=== PATIENT | female | born 1980 | race Native Hawaiian/Other Pacific Islander ===

== ENCOUNTER 2016-08-09 13:22 | Emergency (ER) | payer OTHER ==
[~2016-08-09] VITALS: Ht 170.2 cm; Wt 69.9 kg
[2016-08-09 15:11] LABS: PLATELET COUNT 193 K/uL (152-353)
[2016-08-09 15:30] LABS: POTASSIUM 3.1 mmol/L (3.6-5.2); SODIUM 137 mmol/L (136-145)
[2016-08-09 16:03] VITALS: BP 120/83; TEMP 98.5
== END 2016-08-09 16:18 | disposition home or self-care (01) ==
LOC: ED 13:22
DX: R00.2 Palpitations (principal)
CPT/HCPCS: 36415; 80053; 80307; 81000; 82550; 84484; 85027; 93005; 96374; 99283; G0479; J2405

== ENCOUNTER 2016-10-18 16:40 | Emergency (ER) | payer OTHER ==
[~2016-10-18] VITALS: Ht 170.2 cm; Wt 69.4 kg
[2016-10-18 16:45] VITALS: BP 127/81; TEMP 98.8
== END 2016-10-18 17:25 | disposition home or self-care (01) ==
LOC: ED 16:40
DX: K02.9 Dental caries, unspecified (principal); K05.30 Chronic periodontitis, unspecified; A69.1 Other Vincent's infections
CPT/HCPCS: 99282

== ENCOUNTER 2018-11-30 12:28 | Emergency (ER) | payer OTHER ==
[~2018-11-30] VITALS: Ht 170.2 cm; Wt 78.0 kg
[2018-11-30 12:50] VITALS: TEMP 98.6
[2018-11-30 13:33] LABS: PLATELET COUNT 218 K/uL (152-353)
[2018-11-30 13:50] LABS: POTASSIUM 4.2 mmol/L (3.6-5.2); SODIUM 141 mmol/L (136-145)
[2018-11-30 14:56] VITALS: BP 103/65
== END 2018-11-30 15:09 | disposition home or self-care (01) ==
LOC: ED 12:28
PROVIDERS: Emergency Medicine
DX: R10.11 Right upper quadrant pain (principal); R14.3 Flatulence; K52.89 Other specified noninfective gastroenteritis and colitis
CPT/HCPCS: 36415; 74022; 80053; 80307; 81000; 82150; 83690; 84484; 85027; 93005; 96360; 99284